=== PATIENT | female | born 1965 | race Caucasian/White ===

== ENCOUNTER → 2023-03-30 09:46 | Outpatient (BNVA) | payer OTHER, SELFPAY | PROVIDERS: PCP Registered Nurse; Visit Provider Registered Nurse | DX: J44.9 Chronic obstructive pulmonary disease, unspecified (principal); E11.9 Type 2 diabetes mellitus without complications; F17.210 Nicotine dependence, cigarettes, uncomplicated; E66.01 Morbid (severe) obesity due to excess calories; Z68.42 Body mass index [BMI] 45.0-49.9, adult; G47.30 Sleep apnea, unspecified; I10 Essential (primary) hypertension | CPT/HCPCS: 80053; 80061; 83036; 85025 ==

== ENCOUNTER 2023-09-22 12:41 | Outpatient (CLI) | payer OTHER, SELFPAY ==
--- NOTE | 2023-09-22 12:45 | XR_ITS ---
WS: [id number] DEXA (DUAL ENERGY X-RAY ABSORPTIOMETRY) Bone mineral density was performed using a [employer] machine. HISTORY: Osteoporosis COMPARISON: None available. Lumbar spine BMD (L1-L4): 1.462 g/cm2 T score: 2.3 Z score: 2.3 Total hip BMD: Left: 1.014 g/cm2. T score: 0.1 Z score: 0.1 Right: 1.021 g/cm2. T score: 0.1 Z score: 0.2 10 year probability of a major osteoporotic fracture is 5.7%. XR/XR DEXA axial skeleton* 73751 IMPRESSION: NORMAL BONE MINERAL DENSITY based upon the WHO classification for females.
== END 2023-09-22 12:42 | disposition home or self-care (01) ==
LOC: RAD 12:41
PROVIDERS: PCP Registered Nurse; Visit Provider Family Medicine
DX: M81.0 Age-related osteoporosis without current pathological fracture (principal)
CPT/HCPCS: 77080

== ENCOUNTER 2023-10-12 11:00 | Outpatient (CLI) | payer OTHER, SELFPAY | END 2023-10-12 11:01 | disposition home or self-care (01) | LOC: SLEEP 10-13 09:30 | PROVIDERS: PCP Registered Nurse; Visit Provider Family Medicine | DX: G47.33 Obstructive sleep apnea (adult) (pediatric) (principal) | CPT/HCPCS: G0399 ==

== ENCOUNTER 2024-01-06 07:54 | Outpatient (CLI) | payer OTHER, SELFPAY ==
--- NOTE | 2024-01-06 07:55 | MM_ITS ---
WS: [id number] BILATERAL SCREENING DIGITAL TOMOSYNTHESIS MAMMOGRAM WITH CAD HISTORY: SCREENING COMPARISON: 08/19/2022, 01/05/2020 Bilateral CC and MLO views with tomosynthesis and synthetic mammography submitted. Computer aided det ection analyzed. Breast composition: There are scattered areas of fibroglandular density. No suspicious masses, microc alcifications or architectural distortion. Benign calcifications in each breast. MM/[place] [id number] IMPRESSION: BI-RADS: 2-Benign FOLLOW UP: 1 Year Follow-up
== END 2024-01-06 07:55 | disposition home or self-care (01) ==
LOC: RAD 07:54
PROVIDERS: PCP Registered Nurse; Visit Provider Family Medicine
DX: Z12.31 Encounter for screening mammogram for malignant neoplasm of breast (principal)
CPT/HCPCS: 77063; 77067

== ENCOUNTER 2024-02-10 20:00 | Outpatient (CLI) | payer OTHER, SELFPAY | END 2024-02-10 20:01 | disposition home or self-care (01) | LOC: SLEEP 23:48 | PROVIDERS: PCP Registered Nurse; Visit Provider Family Medicine | DX: G47.33 Obstructive sleep apnea (adult) (pediatric) (principal) | CPT/HCPCS: 95811 ==

== ENCOUNTER → 2024-08-17 15:18 | Outpatient (BNVA) | payer MEDICAID, SELFPAY | PROVIDERS: PCP Family Medicine; Visit Provider Podiatrist Foot & Ankle Surgery | DX: E11.42 Type 2 diabetes mellitus with diabetic polyneuropathy (principal); L60.3 Nail dystrophy; L84 Corns and callosities; M79.672 Pain in left foot; G62.9 Polyneuropathy, unspecified; G57.62 Lesion of plantar nerve, left lower limb; Z79.4 Long term (current) use of insulin | CPT/HCPCS: 73630 ==

== ENCOUNTER → 2024-11-16 09:15 | Outpatient (BNVA) | payer MEDICAID, SELFPAY | PROVIDERS: PCP Family Medicine; Visit Provider Internal Medicine | DX: E11.9 Type 2 diabetes mellitus without complications (principal); E78.2 Mixed hyperlipidemia | CPT/HCPCS: 80053; 80061; 82043; 83036 ==

== ENCOUNTER → 2024-12-14 08:44 | Outpatient (BNVA) | payer MEDICAID, SELFPAY | PROVIDERS: PCP Family Medicine; Visit Provider Podiatrist Foot & Ankle Surgery | DX: S92.351A Displaced fracture of fifth metatarsal bone, right foot, initial encounter for closed fracture (principal); X58.XXXA Exposure to other specified factors, initial encounter | CPT/HCPCS: 73630 ==

== ENCOUNTER → 2024-12-28 09:52 | Outpatient (BNVA) | payer MEDICAID, SELFPAY | PROVIDERS: PCP Family Medicine; Visit Provider Podiatrist Foot & Ankle Surgery | DX: M79.671 Pain in right foot (principal); S92.351A Displaced fracture of fifth metatarsal bone, right foot, initial encounter for closed fracture; X58.XXXA Exposure to other specified factors, initial encounter; E11.42 Type 2 diabetes mellitus with diabetic polyneuropathy; G62.9 Polyneuropathy, unspecified; Z79.4 Long term (current) use of insulin | CPT/HCPCS: 73630 ==

== ENCOUNTER → 2025-04-13 09:42 | Outpatient (BNVA) | payer MEDICAID, SELFPAY | PROVIDERS: PCP Family Medicine; Visit Provider Orthopaedic Surgery | DX: M25.532 Pain in left wrist (principal); M19.042 Primary osteoarthritis, left hand | CPT/HCPCS: 73110 ==